=== PATIENT | female | born 1975 ===

== ENCOUNTER 2016-10-13 15:33 | Emergency (ER) | payer OTHER ==
[~2016-10-13] VITALS: Ht 162.6 cm; Wt 90.0 kg
[2016-10-13 15:35] VITALS: BP 135/84; PULSE 65; RESP 16; TEMP 99; O2SAT 100
[2016-10-13] MEDS ORDERED: ORPHENADRINE INJ 60 MG/2 ML AMP IM ONE (16:00)
[2016-10-13] MEDS ORDERED: KETOROLAC TROMETHAMINE 60 MG/2 ML (IM) VIAL IM ONE (16:00)
[2016-10-13] MEDS ORDERED: DEXAMETHASONE SOD PHOS 4 MG/ML VIAL IM ONE (16:00)
--- NOTE | 2016-10-13 16:01 | PD ---
HPI Chief Complaint: Pain: Acute or Chronic Time Seen by Provider: 15:58 Travel History International Travel<30 days: No Contact w/Intl Traveler<30days: No Traveled to known affect area: No History of Present Illness HPI 41-year-old female presents to the emergency room for evaluation of low back pain that started yesterday in the middle of the night. Patient was unable to sit up after onset of pain and had to log roll off the side of the bed. Patient states pain is worsened with sitting and improves with standing up. He localizes back pain to the upper lumbar lower thoracic region with radiation laterally. Denies sciatica symptoms. She took 800 mg ibuprofen and states it did not seem to improve her symptoms. Patient had an episode like this one month ago that lasted a few days but is concerned because she had reoccurring of symptoms today. Denies trauma or injury. Denies saddle anesthesia, loss of bowel or bladder control, lower extremity paresthesias, weight loss, fever, chills, or IV drug use. PFSH Past Medical History Medical History: Denies Significant Hx Hx Anticoagulant Therapy: No Diabetes: No Influenza Vaccination: Yes ?: Not Past Surgical History Cardiac Surgery: Yes (AMPLATZER) Section: Yes Other Surgery: Yes (asd repair) Social History Alcohol Use: No Tobacco Use: No (QUIT 2005) Substance Use: No Allergies-Medications (Allergen,Severity, Reaction): Coded Allergies: No Known Allergies (Unverified , 10/13/16) Reported Meds & Prescriptions Reported Meds & Active Scripts Active No Active Prescriptions or Reported Medications Review of Systems Except as stated in HPI: all other systems reviewed are Neg Physical Exam Narrative GENERAL: Well-nourished, obese female in no acute distress. Afebrile. Ambulatory. SKIN: Warm and dry. No erythema or ecchymosis. HEAD: Normocephalic. EYES: No scleral icterus. No injection or drainage. NECK: Supple, trachea midline. No JVD or lymphadenopathy. BACK: No CVA tenderness. No rash. No point tenderness on palpation of the spine. No step-off deformity. Tenderness to palpation of the paraspinous musculature in the lumbar region. 2+ Achilles and patellar reflexes equal bilaterally. Data Data Last Documented VS Vital Signs Date Time Temp Pulse Resp B/P Pulse Ox O2 Delivery O2 Flow Rate FiO2 10/13/16 15:35 99.0 65 16 135/84 100 Orders Ketorolac Inj (Toradol Inj) (10/13/16 16:00) Orphenadrine Inj (Norflex Inj) (10/13/16 16:00) Dexamethasone Inj (Decadron Inj) (10/13/16 16:00) [facility] Medical Decision Making Medical Screen Exam Complete: Yes Emergency Medical Condition: Yes Medical Record Reviewed: Yes Differential Diagnosis Back strain versus degenerative disc disease versus sciatica Narrative Course 41-year-old female presents to the emergency room for evaluation of low back pain that started yesterday without trauma or injury. Patient had 1 episode of back pain one month ago that went away after 3 days. Denies any other history. No reflux symptoms. No midline tenderness. No focal neurological deficits. Achilles and patellar reflexes 2+ and equal bilaterally. She has been ambulatory since onset of symptoms. Patient will be treated conservatively with Toradol, Norflex, and Decadron. Discharged with prescriptions for ibuprofen and Robaxin. Told to follow up with a orthopedic surgeon if symptoms persist or return to the emergency room for worsening symptoms. She understands and agrees to plan. Diagnosis Primary Impression: Low back strain Qualified Code: S39.012A - Low back strain, initial encounter Referrals: Primary Care Physician Patient Instructions: General Instructions, Low Back Strain (ED) Additional Instructions: Rest and drink plenty of fluids. Take Robaxin as directed, as needed for pain. Take ibuprofen with food as directed, as needed for pain. Apply ice to the affected area for 20 minutes at a time, as needed for pain and swelling. Follow-up with a primary care physician. Return to the emergency room for worsening symptoms. Med/Other Pt SpecificInfo: Prescription(s) given Scripts No Active Prescriptions or Reported Meds Disposition: 01 DISCHARGE HOME Condition: Stable Natalie Beck Oct 13, 2016 16:01
[2016-10-13] MEDS ORDERED: ROBA750T PO (16:17)
[2016-10-13] MEDS ORDERED: IBUP800T23 PO (16:17)
== END 2016-10-13 16:40 | disposition home or self-care (01) ==
LOC: PHEFT 15:33
DX: S39.012A Strain of muscle, fascia and tendon of lower back, initial encounter (principal)
CPT/HCPCS: 96372; 99283; J1100; J1885; J2360

== ENCOUNTER 2018-01-07 10:03 | Emergency (ER) | payer OTHER ==
[~2018-01-07] VITALS: Ht 162.6 cm; Wt 84.0 kg
[~2018-01-07 10:03] MED LIST: IBUP1TAB7 PO; ROBA750T PO
[2018-01-07 10:11] VITALS: BP 129/60; PULSE 103; RESP 16; TEMP 98.8; O2SAT 100
--- NOTE | 2018-01-07 10:55 | PD ---
HPI Chief Complaint: Injury Time Seen by Provider: 10:45 Travel History International Travel<30 days: No Contact w/Intl Traveler<30days: No Traveled to known affect area: No History of Present Illness HPI 42-year-old female presents to the emergency department for evaluation of right foot injury that occurred last night. She was states that she was walking and rolled her right foot. She denies any other injury. Current pain is 6/10 to the right lateral foot without radiation, aching and throbbing. Exacerbating factor is movement. Alleviating factors keeping the foot still. Patient reports no chronic medical problems and takes no prescribed medications. She denies . Moderate severity. PFSH Past Medical History Hx Anticoagulant Therapy: No Diabetes: No ?: Not LMP: 2 WEEKS Past Surgical History Cardiac Surgery: Yes (AMPLATZER) Section: Yes Other Surgery: Yes (asd repair) Social History Alcohol Use: Yes (SOCIALLY) Tobacco Use: No (QUIT 2005) Substance Use: No Allergies-Medications (Allergen,Severity, Reaction): Coded Allergies: No Known Allergies (Unverified Adverse Reaction, Unknown, 01/07/18) Reported Meds & Prescriptions Reported Meds & Active Scripts Active No Active Prescriptions or Reported Medications Review of Systems Except as stated in HPI: all other systems reviewed are Neg Physical Exam Narrative GENERAL: Well-nourished, well-developed female patient, afebrile SKIN: Focused skin assessment warm/dry. Patient has ecchymosis noted to the right dorsal and lateral foot HEAD: Normocephalic. Atraumatic. EYES: No scleral icterus. No injection or drainage. NECK: Supple, trachea midline. No JVD or lymphadenopathy. CARDIOVASCULAR: Right pedal pulse is 2+ RESPIRATORY: No accessory muscle use. MUSCULOSKELETAL: No cyanosis. Patient has tenderness over right dorsal and right lateral foot with mild swelling noted. She has full sensation to the distal right lower extremity. Data Data Last Documented VS Vital Signs Date Time Temp Pulse Resp B/P (MAP) Pulse Ox O2 Delivery O2 Flow Rate FiO2 01/07/18 10:11 98.8 103 16 129/60 (83) 100 Orders Orders Ketorolac Inj (Toradol Inj) (01/07/18 11:00) Foot, Complete ([id number]) (01/07/18 ) Splint Or Brace Apply/Monitor (01/07/18 11:44) Crutches (01/07/18 11:44) MDM Medical Decision Making Medical Screen Exam Complete: Yes Emergency Medical Condition: Yes Medical Record Reviewed: Yes Interpretation(s) Last Impressions Foot X-Ray 01/07/18 0000 Signed Impressions: Service Date/Time: Sunday, January 07, 2018 11:17 - CONCLUSION: Avulsion fracture involving the base of the fifth metatarsal with adjacent soft tissue edema. Catina Farfan MD Differential Diagnosis Sprain versus fracture versus dislocation Narrative Course 42-year-old female presents to the emergency department for evaluation right foot injury that occurred yesterday. Patient is given Toradol 60 mg IM for pain. X-ray of the right foot is ordered and pending. X-ray of the right foot shows avulsion fracture involving the base of the fifth metatarsal with adjacent soft tissue edema. Patient is placed in a posterior short leg splint to the right foot and given crutches. She is instructed to follow [employer] foreman. Patient will be discharged short-term prescription for [place] and ibuprofen for pain. She is instructed to ice and elevate. Diagnosis Primary Impression: Fracture of fifth metatarsal bone of right foot Qualified Codes: S92.351A - Displaced fracture of fifth metatarsal bone, right foot, initial encounter for closed fracture Referrals: Greg Wilson DPLani call for appointment Patient Instructions: Foot Fracture in Adults (ED), General Instructions Additional Instructions: Wear splint and use crutches. Take ibuprofen as directed as needed with food for mild to moderate pain. Take [place] as directed as needed for moderate to severe pain. Cautioned this can make you drowsy so do not drive after taking. Elevate right foot. Follow-up with [employer] foreman. Dr. Wilson is our [employer] foreman on-call. Return to the emergency department for any acute worsening of symptoms Med/Other Pt SpecificInfo: Prescription(s) given Scripts Hydrocodone-Acetaminophen ([place]) 5 Mg-325 Mg Tab 1 TAB PO Q6H Y for PAIN, #12 TAB 0 Refills Prov: Amber Aggarwal 01/07/18 Ibuprofen (Ibuprofen) 800 Mg Tab 800 MG PO TID Y for PAIN SCALE 1 TO 10, #21 TAB 0 Refills Prov: Amber Aggarwal 01/07/18 Disposition: 01 DISCHARGE HOME Condition: Stable Amber Aggarwal Jan 07, 2018 10:55
[2018-01-07] MEDS ORDERED: KETOROLAC TROMETHAMINE 60 MG/2 ML (IM) VIAL IM ONE (11:00)
--- NOTE | 2018-01-07 11:29 | RADRPT ---
EXAM DATE/TIME: 01/07/2018 11:17 [facility] COMPARISON: No previous studies available for comparison. INDICATIONS : Fall. Pain to lateral side of right foot. MEDICAL HISTORY : None. SURGICAL HISTORY : None. ENCOUNTER: Initial ACUITY: 1 day PAIN SCORE: 8/10 LOCATION: Right lateral FINDINGS: 3 views right foot demonstrate focal soft tissue edema adjacent to an avulsion fracture at the base o f the fifth metatarsal. The remainder the osseous structures are intact. CONCLUSION: Avulsion fracture involving the base of the fifth metatarsal with adjacent soft tissue edema. Catina Farfan MD on January 07, 2018 at 11:26 Board Certified Radiologist. This report was verified electronically.
[2018-01-07] MEDS ORDERED: IBUP1TAB7 PO (11:46)
[2018-01-07] MEDS ORDERED: NORC5TAB PO (11:46)
== END 2018-01-07 12:16 | disposition home or self-care (01) ==
LOC: PHEFT 10:03
DX: S92.351A Displaced fracture of fifth metatarsal bone, right foot, initial encounter for closed fracture (principal); X50.9XXA Other and unspecified overexertion or strenuous movements or postures, initial encounter; Y93.01 Activity, walking, marching and hiking
CPT/HCPCS: 29515; 73630; 99283; E0113; J1885